=== PATIENT | female | born 1975 | race Caucasian/White ===

== ENCOUNTER 2025-02-23 08:03 | Oncology outpatient (recurring) (ONCR) | payer MEDICARE, SELFPAY ==
[2025-02-23 08:25] VITALS: BP 116/76; PULSE 74; RESP 16; TEMP 36.6; O2SAT 98
[2025-02-23] MEDS: cosyntropin 0.25 mg SDV IVP (08:27)
[2025-02-23 09:12] LABS: Cosyntropin Baseline 8.47 mcg/dL
[2025-02-23 09:39] VITALS: BP 108/71; PULSE 75; RESP 76; TEMP 36.9; O2SAT 99
[2025-02-23 09:40] LABS: Cosyntropin 30 Minute 17.81 mcg/dL
[2025-02-23 09:41] VITALS: BP 108/71; PULSE 75; RESP 16; TEMP 36.9; O2SAT 99
[2025-02-23 10:22] LABS: Cosyntropin 1 Hour 20.24 mcg/dL
== END 2025-03-24 23:59 | disposition home or self-care (01) ==
PROVIDERS: Visit Provider Internal Medicine
DX: E06.3 Autoimmune thyroiditis (principal); Z79.899 Other long term (current) drug therapy
CPT/HCPCS: 36415; 82533; 96374; J0834